=== PATIENT | female | born 1980 | race Caucasian/White ===

== ENCOUNTER 2019-07-19 04:01 | Emergency (ER) | payer MEDICAID, OTHER ==
[~2019-07-19] VITALS: Ht 160 cm; Wt 75.5 kg
[2019-07-19 04:03] VITALS: BP 141/86
[2019-07-19 05:11] LABS: HCG UR SG 1.018 (1.003-1.030)
[2019-07-19 05:19] LABS: CULTURE INDICATED? YES; MICROSCOPIC INDICATED
[2019-07-19] MEDS ORDERED: PHENAZOPYRIDINE 200 MG TABLET ONE (05:55)
[2019-07-19] MEDS ORDERED: PHENAZOPYRIDINE 200 MG TABLET PO ONE (06:00)
== END 2019-07-19 06:00 ==
LOC: ED 05:54
DX: N30.01 Acute cystitis with hematuria (principal); I10 Essential (primary) hypertension
CPT/HCPCS: 81001; 81025; 87077; 87086; 87186; 99283

== ENCOUNTER 2019-08-26 11:27 | Emergency (ER) | payer OTHER ==
[~2019-08-26] VITALS: Ht 160 cm; Wt 78.2 kg
[2019-08-26 11:30] VITALS: BP 117/71
== END 2019-08-26 12:42 | disposition home or self-care (01) ==
LOC: ED 12:35
DX: J18.9 Pneumonia, unspecified organism (principal); R51 Headache; I10 Essential (primary) hypertension; F17.200 Nicotine dependence, unspecified, uncomplicated
CPT/HCPCS: 71046; 93005; 99283